=== PATIENT | female | born 1980 | race Caucasian/White ===

== ENCOUNTER 2021-07-08 15:55 | Emergency (ER) | payer OTHER, SELFPAY ==
[2021-07-08 16:48] VITALS: BP 157/94; PULSE 118; RESP 16; TEMP 36.8; O2SAT 96; BMI 36.0
--- NOTE | 2021-07-08 17:59 | CT_ITS ---
PROCEDURE INFORMATION: Exam: CT Head Without Contrast Exam date and time: 07/08/2021 5:59 PM Age: 40 years old Clinical indication: Headache not specified; Patient HX: Pain in left side of head. ; Additional info: Pain, L side TECHNIQUE: Imaging protocol: Computed tomography of the head without contrast. 3D rendering (Not supervised by radiologist): MIP and/or 3D reconstructed images were created by the technologist. Radiation optimization: All CT scans at this facility use at least one of these dose optimization techniques: automated exposure control; mA and/or kV adjustment per patient size (includes targeted exams where dose is matched to clinical indication); or iterative reconstruction. COMPARISON: No relevant prior studies available. FINDINGS: Brain: Normal. No hemorrhage. Unremarkable white matter. No mass effect. Cerebral ventricles: No ventriculomegaly. Paranasal sinuses: Visualized sinuses are unremarkable. No fluid levels. Mastoid air cells: Visualized mastoid air cells are well aerated. Auditory system: Probable cerumen in the right external auditory canal. Bones/joints: Unremarkable. No acute fracture. Soft tissues: Unremarkable. IMPRESSION: No acute intracranial pathology
--- NOTE | 2021-07-08 19:04 | [facility].EDGENADL ---
ED Disposition Clinical Impression: Suicidal ideation Sinusitis Qualifiers: Sinusitis location: frontal Chronicity: acute Recurrence: non-recurrent Qualified Code(s): J01.10 - Acute frontal sinusitis, unspecified Disposition: Xfer Psychiatric Hosp Condition on Discharge: Good Referrals: Provider,Referral, [Primary Care Provider] - Time of Disposition: 19:50 - Critical Care Critical Care Time: No Attestation: On 07/08/21, the high probability of a clinically significant, sudden or life threatening deterioration of the following system(s) required my full and direct attention, intervention and personal management. The time I documented below is in addition to time spent performing reported procedures but includes the following listed in this critical care notation. Medical Decision Making - Medical Records Medical records reviewed: Yes: I reviewed the patient's medical records. - Mario Inquiry Pt receiving controlled substance: No Vital Signs: 07/08/21 16:48 Temperature 98.3 F Temperature Source Oral Pulse Rate [Left Radial] 118 H Respiratory Rate 16 Blood Pressure [Right Arm] 157/94 H Blood Pressure Mean [Right Arm] 115 Blood Pressure Source [Right Arm] Automatic Cuff Blood Pressure Position [Right Arm] Sitting 02 Sat by Pulse Oximetry 96 Oxygen Delivery Method Room Air - Lab Data Lab results reviewed: Yes: I reviewed the patient's lab results. Lab Results 07/08/21 18:54: Urine Color Yellow, Urine Appearance Sl cloudy, Urine pH 6.5, Ur Specific [place] <= 1.005, Urine Protein Negative, Urine Glucose (UA) Negative, Urine Ketones Negative, Urine Blood Negative, Urine Nitrate Negative, Urine Bilirubin Negative, Urine Urobilinogen 0.2, Ur Leukocyte Esterase 1+ A, Urine RBC Occasional, Urine WBC 3-5, Ur Squamous Epith Cells Occasional, Urine Bacteria Trace 07/08/21 18:54: Urine HCG, Qual Negative 07/08/21 18:54: Sodium 138, Potassium 3.6, Chloride 109 H, Carbon Dioxide 25, Anion Gap 7.6, BUN 4 L, Creatinine 0.50 L, Estimated Creat Clear 223, Estimated GFR 136, Est GFR ( Amer) 165, Glucose 95, Calcium 8.7, Total Bilirubin 0.3, AST 22, ALT 14, Alkaline Phosphatase 112, Total Protein 6.7, Albumin 3.6, Globulin 3.1, Albumin/Globulin Ratio 1.2, Salicylates < 1.0 L, Acetaminophen < 10 L 07/08/21 18:54: Urine Opiates Screen Negative, Urine Methadone Screen Negative, Ur Barbituates Screen Negative, Ur Phencyclidine Scrn Negative, Ur Amphetamines Screen Negative, U Benzodiazepines Scrn Negative, Urine Cocaine Screen Positive H, U Marijuana (THC) Screen Negative 07/08/21 18:54: Plasma/Serum Alcohol < 10 07/08/21 19:10: WBC 14.3 H, RBC 4.44, Hgb 13.7, Hct 42.5, MCV 95.6, MCH 30.9, MCHC 32.3, RDW 14.2, Plt Count 376, MPV 7.9, Neut % (Auto) 74.7, Lymph % (Auto) 19.6, [place] % (Auto) 3.3, Eos % (Auto) 1.6, Baso % (Auto) 0.8, Neut # (Auto) 10.7 H, Lymph # (Auto) 2.8, [place] # (Auto) 0.5, Eos # (Auto) 0.2, Baso # (Auto) 0.1 Result diagrams: 07/08/21 19:10 07/08/21 18:54 Orders (Tests/Meds): ORDERS Category Date Time Status Urine Culture Stat Micro 07/08/21 18:54 Received - CT Data CT Scan: Head Time Received: 19:[address] Reviewed: Yes: I have reviewed the patient's CT results Preliminary Findings: Normal/NAD Medical Decision Narrative: 40yo F evaluated emergency department for sinus pain and for suicidal ideation. Patient's physical exam is unremarkable. TMs are clear bilaterally. Discussed likely viral etiology for sinus pain and use of Flonase, Motrin/Tylenol. Patient reports suicidal ideation and states that she needs help before she explodes. Patient is voluntary at this time. Routine psychiatric labs have been ordered. Upon the result, will call around to different facilities for evaluation. Patient's laboratory studies remarkable for white count of 14. Metabolic panel is unremarkable. Drug screen is positive for cocaine. CT head is unremarkable. Case discussed with [facility] for possible
[2021-07-08 19:05] LABS: Microscopic, Urine URINE MICROSCOPIC (MICROSCOPIC)
[2021-07-08 19:09] LABS: Appearance,Urine SL CLOUDY (Clear); Bilirubin,Urine Negative (Negative); Blood, Urine Negative (Negative); Color,Urine YELLOW (Yellow); Glucose,Urine (UA) Negative (Negative); Ketones,Urine Negative (Negative); Leukocyte Esterase,Urine 1+ (Negative); Nitrate,Urine Negative (Negative); PH,Urine 6.5 (5.0-8.5); Protein,Urine Negative (Negative); Specific Gravity, Urine <= 1.005 (1.005-1.030); Urobilinogen,Urine 0.2 EU/dl (0.2)
[2021-07-08 19:13] LABS: Alanine Aminotransferase 14 U/L (12-78); Albumin Level 3.6 g/dl (3.5-5.0); Albumin/Globulin Ratio 1.2 (1.1-1.8); Alkaline Phosphatase 112 U/L (38-126); Anion Gap 7.6 mEq/L (5-15); Aspartate Amino Transferase 22 U/L (14-36); Bilirubin,Total 0.3 mg/dl (0.2-1.3); Blood Urea Nitrogen 4 mg/dl (7-17); Calcium 8.7 mg/dl (8.4-10.2); Carbon Dioxide 25 mmol/L (22.0-30.0); Chloride 109 mmol/L (98-107); Creatinine Clearance Estimated 223 mL/min (50-200); Estimated Glomerular Filt Rate 136 ml/min (>60); GFR (African American) 165 ML/MIN (>60); Globulin 3.1 g/dL (1.3-3.2); Glucose 95 mg/dl (74-100); Potassium 3.6 mmoL/L (3.5-5.1); Sodium 138 mmol/L (136-145); Total Protein,Serum 6.7 g/dl (6.3-8.2)
[2021-07-08 19:15] LABS: Urine Pregnancy, HCG Qual. Negative (Negative)
[2021-07-08 19:17] LABS: Acetaminophen < 10 ug/ml (10-30); Salicylate < 1.0 mg/dL (2.0-20.0)
[2021-07-08 19:19] LABS: Basophils # 0.1 K/mm3 (0-0.2); Basophils % 0.8 % (0.1-2.0); Eosinophils # 0.2 K/mm3 (0.0-0.4); Eosinophils % 1.6 % (0.1-12.0); Hematocrit 42.5 % (37.0-47.0); Hemoglobin 13.7 g/dL (12.2-16.2); Lymphocytes # 2.8 K/mm3 (0.7-4.5); Lymphocytes % 19.6 % (10-50); Mean Corpuscular HGB Conc 32.3 g/dL (31.8-35.4); Mean Corpuscular Hemoglobin 30.9 pg (27.0-31.2); Mean Corpuscular Volume 95.6 fl (81-99); Mean Platelet Volume 7.9 fl (7.4-10.4); Monocytes # 0.5 K/mm3 (0.1-1.0); Monocytes % 3.3 % (1.7-9.3); Neutrophils # 10.7 K/mm3 (1.8-7.8); Neutrophils % 74.7 % (37.0-80.0); Platelet Count 376 K/mm3 (142-424); Red Blood Count 4.44 M/mm3 (4.20-5.40); Red Cell Distribution Width 14.2 % (11.5-17.5); White Blood Count 14.3 K/mm3 (4.8-10.8)
[2021-07-08 19:23] LABS: Amphetamine/Metha Screen,Urine Negative ng/ml (<1000); Bacteria,Urine Trace /lpf; Ethyl Alcohol < 10 mg/dl (0-10); RBC,Urine Occasional #/hpf (0-3); Squamous Epithelial Cell,Urine Occasional #/hpf (0-5)
[2021-07-08 19:24] LABS: Barbiturates Screen,Urine Negative ng/ml (<200)
[2021-07-08 19:25] LABS: Benzodiazepines Screen,Urine Negative ng/ml (<200)
--- NOTE | 2021-07-08 19:25 | PC.NURSE ---
Report called to Sher at [facility]
[2021-07-08 19:27] LABS: Cannabinoid Screen,Urine Negative ng/ml (<50); Methadone Screen,Urine Negative ng/ml (<300)
[2021-07-08 19:28] LABS: Cocaine Screen,Urine Positive ng/ml (<300)
[2021-07-08 19:29] LABS: Opiate Screen,Urine Negative ng/ml (<300)
[2021-07-08 19:30] LABS: Phencyclidine Screen,Urine Negative ng/ml (<25)
--- NOTE | 2021-07-08 20:22 | PC.NURSE ---
Called Judge Ziegler, he is on-call. He gave fax # to his office to receive [phone] forms and will fax them back to ER.
[2021-07-08 21:15] VITALS: BP 135/72; PULSE 101; RESP 20; TEMP 36.8; O2SAT 98
== END 2021-07-08 21:20 ==
PROVIDERS: Emergency Provider Family Medicine
DX: R45.851 Suicidal ideations (principal); J01.10 Acute frontal sinusitis, unspecified; F17.210 Nicotine dependence, cigarettes, uncomplicated
CPT/HCPCS: 36415; 70450; 80053; 80305; 80329; 81001; 81025; 85025; 87086; 99284